=== PATIENT | female | born 1975 | race Hispanic/Latino ===

== ENCOUNTER 2018-09-22 11:37 | Emergency (ER) | payer SELFPAY ==
[2018-09-22 11:38] VITALS: BP 117/55; PULSE 61; RESP 17; TEMP 36.9; O2SAT 98; BMI 32.8
--- NOTE | 2018-09-22 11:51 | CT_ITS ---
STUDY: CT ABDOMEN AND PELVIS WITHOUT CONTRAST REASON FOR EXAM: Female, 43 years old. Right flank pain. History of kidney stones. RADIATION DOSAGE (If Supplied By Facility): CTDIvol = ( 7.76 ) mGy, DLP = ( 374.21 ) mGycm TECHNIQUE: Transaxial images were obtained from the dome of the diaphragm to the symphysis pubis without oral contrast, and without intravenous contrast. Sagittal and coronal images were reconstructed. Individualized dose optimization techniques were used for this CT. COMPARISON: None. FINDINGS: The visualized lung bases are unremarkable. There are small fat-containing hernias through the lateral posterior hemidiaphragms. The visualized portions of the heart are within normal limits. There is decreased attenuation of the liver consistent with steatosis. Portal vein diameter is approximately 10.5 mm. 11 mm rim calcified stone is noted near the neck of the gallbladder. There is no thickening of the gallbladder wall nor pericholecystic fluid to indicate cholecystitis. The common bile duct diameter reaches 7 mm. Normal spleen. Normal pancreas. Normal bilateral adrenal glands. Normal right kidney. Normal left kidney. Prominent left extrarenal pelvis and borderline fullness of the proximal left ureter. No nephrolithiasis or overt source of urinary tract obstruction. Normal visualized stomach. Normal small intestine. There are regional left colonic diverticula consistent with diverticulosis. The appendix is visualized on series 601 images 65-66 and appears normal. Normal abdominal aorta. Normal inferior vena cava. Normal retroperitoneum. Normal urinary bladder. The size of the anteverted midline uterus is upper normal. Normal visualized adnexa. There is a very small umbilical hernia containing fat. There are mild degenerative changes of the visualized lower thoracic and mid lumbar spine. 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 CT/Abdomen/Pelvis without Cont IMPRESSION: 1. [address] sign of acute cholecystitis or bile duct obstruction. 2. Prominent left extrarenal pelvis. No nephrolithiasis or demonstrated source of urinary tract obstruction, however. 3. Mild left colonic diverticulosis without acute diverticulitis. No sign of bowel obstruction. The appendix is normal. 4. The uterus is upper normal in size. The visualized adnexa are unremarkable. Electronically Signed: Kevyn Dominguez MD at 13:45 EST , Service support ,
--- NOTE | 2018-09-22 11:53 | ED.VISSUMM ---
- ER Visit Summary Date of Service: 09/22/18 Chief Complaint: [] Right flank pain frequent urination for about 2 weeks History of Present Illness: The patient is a 43 F [] speaks Bahraini very little Djiboutian history is provided by daughter who is translating for her. Apparently patient's been having a flank pain, that can be episodic, to the right side for about 2 weeks with frequent urination, no fever no cough bowel habits have been normal, the flank pain and frequent urination intensified over the last few days and she came in for evaluation. She is a prior history for kidney stones involving the right side that were treated with medications only, she has had a small procedure for control years ago she no longer has menstrual cycles, she had no vaginal bleeding or discharge she had no trauma to her body she is eating and drinking well and otherwise feels fine, she takes her hand and draws with her right flank down across the right iliac crest complaining of pelvic pressure when the pain strikes her, nothing makes it better or worse, Otherwise per history she has no other past history and is on no chronic meds Physical Examination: [] 117/55, afebrile General, no distress resting comfortably HEENT is generally unremarkable The neck is supple no adenopathy Cardiovascular, regular rate and rhythm Lungs, clear bilateral Abdomen, soft nontender, she takes her hand and draws across her right flank there is no rebound guarding organomegaly no skin changes no contusion or bruising Extremities, no clubbing cyanosis or edema Neurologic, awake alert answering questions appropriately moving all 4 extremities Test Results: [] Emergency Department Course and Treatment: [] In all the above screening labs IV fluids pain management CT Patient's lab studies are generally all unremarkable please see those reports, the CT abdomen shows nothing acute they do note an 11 mm gallstone in the right upper quadrant gallbladder region, there is no signs of acute cholecystitis intrahepatic duct dilatation or any acute gross abnormalities related to this gallstone she is resting in the bed comfortably discussed the details of the workup with her and the daughter as above, the patient has no questions, she is been very stable here, I did explain the concept of the gallstone contributing to least a component of the right sided pain it would not really explain the urinary symptoms, At this time she is referred to Dr. Richardson of surgery, she is referred to [facility] she will be given Maxatawny No. 7 tablets use apparently at bedtime and return for change in symptoms via the daughter as kindergarten instructional assistant the patient reported understanding had no further questions or concerns about follow-up Treatment Plan: [] Disposition: [] Home stable Impression: [] Intermittent right flank pain etiology unclear, [address] This note was generated with [employer] dictation software. It may contain incorrect words, spelling, and punctuation that were not noted in review of the chart prior to signing ED Disposition - Plan for ED Patient: Chief Complaint: Flank Pain Referrals: Care Physician,No Primary [Primary Care Provider] -
[2018-09-22 12:03] LABS: Absolute Neutrophil Count 3.5 X10^3/uL (2.0-7.7); Basophil# 0.01 X10^3/uL; Basophil% 0.2 % (0-1); Eosinophils% 1.7 % (0-5); Hematocrit 35.2 % (37-47); Hemoglobin 11.8 g/dl (12.0-15.0); Mean Corp Hgb Conc 33.5 g/gl (32-36); Mean Corpuscular Hgb 29.5 pg (27.0-32.0); Mean Platelet Vol. 10.7 fl (6.2-12.0); Monocyte# 0.33 X10^3/uL; Monocyte% 5.5 % (0-10); Neutrophil # 3.45 X10^3/uL (2.7-7.7); Neutrophil % 57.4 % (47-70); Platelet Count 232 K/mm3 (150-450); RBC Distribution Width CV 13.4 % (11.6-14.6); RBC Distribution Width SD 43.3 fl (35.1-43.9)
[2018-09-22 12:05] LABS: POSITIVE COUNT NO; POSITIVE DIFFERENTIAL NO; POSITIVE MORPHOLOGY NO
[2018-09-22] MEDS: morphine 8 MG/ML Syringe IV (12:14)
[2018-09-22] MEDS: 0.9% Normal Saline 1,000 ML 1000 ML IV (12:15)
[2018-09-22] MEDS: Ondansetron 4 MG/2 ML Vial IV (12:15)
[2018-09-22 12:18] LABS: AST(SGOT) 15 U/L (15-37); Alanine Aminotransfer ALT/SGPT 37 U/L (13-56); Albumin, Serum 3.4 g/dL (3.2-5.0); Alkaline Phosphatase 71 U/L (45-117); Anion Gap 6 (5-15); BUN 15 mg/dL (7-18); BUN/Creat Ratio 19.5 RATIO (10-20); Calcium,Total 7.8 mg/dL (8.5-10.1); Chloride 108 mmol/L (98-107); Creatinine, Serum 0.77 mg/dL (0.55-1.02); EST Glomerular Filtration Rate 87 mL/min (>60); Est Glom Filt Rate - Afr Amer 105 mL/min (>60); Estimated Creatinine Clearance 68.36 ml/min; Globulin 4.2 g/dL (2.2-4.2); Glucose 121 mg/dL (74-106); Lipase 112 U/L (73-393); Potassium 3.6 mmol/L (3.5-5.1); Protein, Total 7.6 g/dL (6.4-8.2); Sodium Level 138 mmol/L (136-145)
[2018-09-22 12:48] LABS: Bacteria 0 SEEN /hpf (None Seen); Color, Urine Yellow (Yellow); Glucose, Dipstick Normal (Normal); Ketone-Dipstick Negative (Negative); Leukocyte Esterase-Dipstick 25 /ul (Negative); Mucous, Urine 0 SEEN /hpf (<or=2+); Nitrite-Dipstick Negative (Negative); Occult Blood-Urine 25 /ul (Negative); Protein-Dipstick Negative (Negative); Red Blood Cells-Urine 0 SEEN /hpf (0-5); Urine Bilirubin Dipstick Negative (Negative); Urine Clarity Clear (Clear); Urine Urobilinogen Normal (Normal); Urine pH 6.5 (5.0 - 8.0)
[2018-09-22 12:55] LABS: Squamous Epithelial Cells - UA 0-5 SEEN /hpf (5-10); White Blood Cells 0-5 SEEN /hpf (0-5)
[2018-09-22] MEDS: Morphine 4 MG/ML Syringe IV (13:31)
[2018-09-22] MEDS: 0.9% Normal Saline 1,000 ML 999 ML IV (13:32)
--- NOTE | 2018-09-22 14:00 | ED.DEP ---
ED Disposition - Plan for ED Patient: Chief Complaint: Flank Pain Instructions: ED Flank Pain Uncertain Cause Prescriptions: Hydrocodone Bitart/Apap 5-325 [[place] 5MG-325MG] 1 tab PO QHS 2 Days #10 tab Referrals: Care Physician,No Primary [Primary Care Provider] - Tenzin Bean MD [STAFF PHYSICIAN] - Oniel Ac MD [STAFF PHYSICIAN] -
--- NOTE | 2018-09-22 14:04 | DCINST.ED_ITS ---
ED Disposition - Plan for ED Patient: Chief Complaint: Flank Pain Instructions: ED Flank Pain Uncertain Cause Prescriptions: Hydrocodone Bitart/Apap 5-325 [[place] 5MG-325MG] 1 tab PO QHS 2 Days #10 tab Referrals: Care Physician,No Primary [Primary Care Provider] - Tenzin Bean MD [STAFF PHYSICIAN] - Oniel Ac MD [STAFF PHYSICIAN] -
[2018-09-22 14:16] VITALS: BP 105/51; PULSE 54; RESP 16
== END 2018-09-22 14:21 | disposition home or self-care (01) ==
LOC: ED 12:21
PROVIDERS: Emergency Provider Emergency Medicine
DX: R10.9 Unspecified abdominal pain (principal); K80.20 Calculus of gallbladder without cholecystitis without obstruction; R35.0 Frequency of micturition; R30.0 Dysuria; Z87.442 Personal history of urinary calculi
CPT/HCPCS: 74176; 80048; 80076; 81001; 83690; 85025; 87086; 87088; 96361; 96374; 96375; 96376; 99283; J7030; J2405

== ENCOUNTER 2018-10-04 10:10 | Day surgery (SDC) | payer SELFPAY ==
[2018-09-29 13:56] VITALS: BMI 32.5
[2018-10-04] VITALS (7 sets, daily range): BP systolic 112–125; BP diastolic 60–73; PULSE 55–67; RESP 16–18; TEMP 36.2–36.8; O2SAT 96–100; BMI 30.7
--- NOTE | 2018-10-04 10:30 | GALL_PTH ---
PATIENT: MARILIA CALLAHAN LOC: [facility] U#:[id number] AGE/SX: 43/F ROOM: RE10/04/[address]: Dr. Tenzin Bean MD : [id number] BED: DIS: 10/04/2018 SPEC #: [id number] RECD: 10/05/18 08:42 STATUS: DEEJAY VANGIE #: [id number] SUMIT: 10/04/18 10:[address]: Tenzin Bean DEPT: SURGICAL PATHOLOGY RECD BY: Phiilp Oconnor ENTERED: 10/05/18 09:22 SP TYPE: RAMÓN LARA DR: No Primary Care Phys Tissues: Gallbladder, NOS Procedures: Surgery Specimen Level III HEADER OPERATION: Laparoscopic cholecystectomy with intraoperative cholangiogram PRE-OP DIAGNOSIS: Calculus of gallbladder without cholecystitis without obstruction, biliary colic TISSUE SUBMITTED: Gallbladder MICROSCOPIC DIAGNOSIS Gallbladder: Chronic cholecystitis, cholelithiasis and cholesterolosis. SJ:wendy 10/06/18 MICROSCOPIC DESCRIPTION Slides are reviewed. GROSS DESCRIPTION Received is one container labeled with the patient's name and designated gallbladder. The specimen consists of a gallbladder measuring 6.5 cm in length and up to 3 cm in diameter. The external surface is pink-higgins, smooth and glistening for the most part. Focally it is granular, hemorrhagic and contains cautery artifact. The gallbladder contains thick, green-yellow mucoid bile, sludge material and one round to ovoid greenish-brown stone measuring 1.2 cm in greatest dimension. The mucosa is bile-stained and without any mass lesions. The gallbladder wall measures up to 0.3 cm in thickness. The mucosa also shows several yellowish streaks consistent with cholesterolosis. Magento Developer sections from the gallbladder and the cystic duct are submitted in one cassette. / SJ:wendy 10/05/18 TC:3 CPT: 81272
[2018-10-04 10:37] LABS: Internal QC Validated? YES +Cl - CLEAR BKGD; Pregnancy, Urine Negative Negative
--- NOTE | 2018-10-04 10:47 | EKG12_ITS ---
Test Reason : PRE OP Blood Pressure : / mmHG Vent. Rate : 058 BPM Atrial Rate : 058 BPM P-R Int : 146 ms QRS Dur : 086 ms QT Int : 444 ms P-R-T Axes : 040 029 031 degrees QTc Int : 435 ms Sinus bradycardia Confirmed by JEREMÍAS NAM, ALLIE ([id number]), design editor MARIA A WEBSTER ([id number]) on 10/06/2018 3:24:17 PM Referred By: Tenzin Bean Confirmed By:ALLIE VERONICA MD
--- NOTE | 2018-10-04 11:15 | RAD_ITS ---
STUDY: INTRAOPERATIVE CHOLANGIOGRAM. REASON FOR EXAM: Female, 43 years old. A laparoscopic cholecystectomy. FLUOROSCOPY TIME (if supplied): (19.9 seconds) minutes/seconds. Single image. TECHNIQUE: An intraoperative quadrant was performed by the surgeon. Imaging was provided. COMPARISON: None. FINDINGS: The visualized intrahepatic bile ducts are unremarkable. The common bile duct is unremarkable as well. There is free flow of contrast into the duodenum. RAD/Cholangiogram/ O R,Initial IMPRESSION: Unremarkable intraoperative cholangiogram. Electronically Signed: Jamie White MD at 13:28 EST Tel [phone], Service support ,
[2018-10-04] MEDS: Bupiv/Epi 0.5% Mpf 30 ML Vial INTRAARTIC (12:20)
--- NOTE | 2018-10-04 12:34 | PCM.OPRPT ---
Problem List (1) Cholelithiasis Status: Acute Qualifiers: Cholelithiasis location: gallbladder Cholecystitis presence: without cholecystitis Biliary obstruction: without biliary obstruction Qualified Code(s): K80.20 - Calculus of gallbladder without cholecystitis without obstruction Report of Operation Date of Procedure: 10/04/18 Pre-Operative Diagnosis: Cholelithiasis and biliary colic Post-Operative Diagnosis: Same Surgery/Procedure Performed:: Laparoscopic cholecystectomy with cholangiogram Specimen's removed: Gallbladder Description of Procedure: After obtaining informed consent patient was brought back to the operating room. General anesthesia was induced. The abdomen was prepped and draped in usual sterile fashion. A small midline incision was made superior to the umbilicus and deepened to the level of fascia. The fascia was elevated and incised. Next the peritoneum was elevated and incised in the same fashion. Finger sweep was performed and the Read trocar was placed into the abdomen. The balloon was inflated. The abdomen was inflated to 15 mmHg. Next a camera was introduced into the abdomen and the abdomen was inspected. Next under direct visualization three 5-mm ports were placed one subxiphoid and 2 subcostal. Next the gallbladder was elevated and retracted toward the right shoulder. The peritoneum was stripped from the gallbladder. The infundibulum was located and retracted laterally. Next the triangle of Calot was dissected and the cystic duct and cystic artery were identified. Cholangiograms were performed. The Chance catheter was used to clamp across the infundibulum and the needle was inserted into the gallbladder. There was a leak using the Chance catheter and so the Chance clamp was removed. Next a small incision was made in the right upper quadrant and a Ranfac catheter was placed into the abdomen. The cystic duct was clipped proximally and a small yulissa was made in the cystic duct and the Ranfac catheter was placed into the cystic duct. Another clip was applied below the entrance to the cystic duct and cholangiograms were obtained. Under fluoroscopy contrast was instilled into the gallbladder and the common duct, cystic duct as well as proximal hepatic ducts were identified. There was good filling of the duodenum. There were no filling defects noted in the common bile duct. The Ranfac catheter was removed and the gallbladder was grasped once more. Three hemolock clips were placed across the cystic duct. The cystic duct was then divided leaving 2 clips on the stump. The cystic artery was clipped and divided in the same fashion. The hook cautery was then used to take the gallbladder off of the gallbladder bed. Hemostasis was obtained. Gallbladder fossa was irrigated and no active bleeding or bile leakage was noted. Next the camera switched to a 5 mm camera and introduced in the subxiphoid port. An Endopouch bag was placed through the umbilical port and the gallbladder was placed into it. The gallbladder was then removed through the umbilical incision. The camera was then reinserted through the umbilical port. The gallbladder fossa was inspected once more and noted to be hemostatic with no leaking bile. The abdomen was suctioned dry the 5 mm ports were removed under direct visualization. The umbilical port was then removed and the air was removed from the abdomen. Next using an 0 Vicryl suture the umbilical fascia was closed in a [id number] fashion. The umbilical port site was irrigated local anesthetic was administered to all the incisions. All the incisions were closed subcuticular 4-0 Monocryl sutures followed by Steri-Strips and dressings. The patient was awoken and taken to PACU in stable condition. - Admit VTE Documentation VTE Mechan Device Prophylaxis: SCD's
--- NOTE | 2018-10-04 12:41 | DCINST_ITS ---
Discharge Diet: Light diet - advance as tolerated Discharge Activity: Return to Normal Activity, May Not Drive - for 2-3 days or while taking narcotic pain medicataions., - - Do not drive, work heavy equipment or sign legal documents for 24 hours. May shower in (days): 1 - with the bandage in place. Additional Activity Instructions:: Pain medication may cause nausea. You should typically eat light foods as you take your pain medications. Pain medication may also cause constipation. If this is a problem for you, please discuss with your doctor. Call your doctor if your incision/area has: Continuous Slow Oozing, Sudden Increased Bleeding, Increased Pain/ Swelling, Increased Redness, Foul Smelling Discharge, Fever of 101 or Higher Call your doctor if you observe: Fever of 101 or Higher Suture Line Care: Avoid Pulling/Pushing, Avoid Pinching/Bending Additional Dressing/Incision Instructions:: Leave operative bandaids on for 2 days. When you remove dressing, leave Steri-Strips on until your follow-up appointment, or until the Steri-Strips fall off on their own. Allergies/Adverse Reactions: Allergies No Known Allergies Allergy (Verified 09/29/18 14:02) Medications to take at Discharge Hydrocodone/Acetaminophen [Hydrocodone-Acetamin 5-325 mg] 1 tab PO QHS PRN 10/03/18 Hydrocodone/Acetaminophen [[place] 5-325 Tablet] 1 - 2 tab PO Q6H PRN PRN 7 Days #40 tablet 10/04/18 The following prescriptions were given: Hydrocodone/Acetaminophen [[place] 5-325 Tablet] 1 - 2 tab PO Q6H PRN PRN 7 Days #40 tablet PRN Reason: Pain Orders to be completed after discharge: 12 Lead EKG [[facility]] Time Frame: 10/04/18, Facility: [facility], Location: Invasive Physician Primary Care Physician: Care Physician,No Primary [Primary Care Provider] - Test Results: Test results from this visit will be discussed in further detail at your follow- up appointment, if applicable. Please Follow Up With: Tenzin Bean MD When: Please call to schedule 2 week follow up appointment. [phone]
[2018-10-04] MEDS: HYDROcodone Bitartrate/Apap 5/325 Tablet PO (14:42)
== END 2018-10-04 16:01 | disposition home or self-care (01) ==
LOC: SDC 10:13 → AC 10:14
PROVIDERS: Anesthesiology; Referring Provider Surgery; Visit Provider Surgery
PROC: (CPT 47610; principal; 2018-10-04 10:10)
DX: K80.10 Calculus of gallbladder with chronic cholecystitis without obstruction (principal); Z87.891 Personal history of nicotine dependence
CPT/HCPCS: 00790; 47563; 74300; 76000; 81025; 88304; 93005; J7120; J2405

== ENCOUNTER 2018-11-04 16:36 | Emergency (ER) | payer SELFPAY ==
[2018-11-04 16:36] VITALS: BMI 30.7
[2018-11-04 16:39] VITALS: BP 119/64; PULSE 67; RESP 19; TEMP 37.1; O2SAT 97; BMI 28.3
--- NOTE | 2018-11-04 16:49 | CT_ITS ---
STUDY: CT ABDOMEN AND PELVIS WITH CONTRAST REASON FOR EXAM: Female, 43 years old. Recent cholecystectomy. Lower abdominal pain. RADIATION DOSAGE (If Supplied By Facility): CTDIvol = ( 14.89 ) mGy, DLP = ( 1304.49 ) mGycm TECHNIQUE: Transaxial images were obtained from the dome of the diaphragm to the symphysis pubis without oral contrast. 100mL ml of Isovue 300 contrast was administered. Sagittal and coronal images were reconstructed. Individualized dose optimization techniques were used for this CT. COMPARISON: 09/22/2018. FINDINGS: The visualized lung bases are unremarkable. The visualized portions of the heart are within normal limits. Normal liver. There is non-visualization of the gallbladder, which may be secondary to either contraction or a prior cholecystectomy. Normal spleen. Normal pancreas. Normal bilateral adrenal glands. Normal right kidney. Abnormal left kidney with increasing hydronephrosis and distention of the renal pelvis to the level of the UPJ. Findings could represent an acquired UPJ obstruction/stricture. No definite stone is seen. Evaluation of the GI tract is limited by absence of oral contrast. Cannot exclude stomach wall thickening. No dilated loops of bowel or evidence for obstruction. Cannot exclude segmental thickening of the hills of the small or large bowel. Cannot exclude enteritis or colitis. Moderate diffuse fecal retention. Appendix within normal limits. Normal abdominal aorta. Normal inferior vena cava. Normal retroperitoneum. Distended urinary bladder. Normal visualized uterus. Normal abdominal wall. Normal osseous structures. CT/Abdomen/Pelvis W IV Cont ONLY IMPRESSION: Increasing left hydronephrosis and distention of the left renal pelvis without a definite stone. Findings could represent acquired UPJ obstruction. No other acute abnormalities. Electronically Signed: Nacho Price MD at 18:39 EST , Service support ,
--- NOTE | 2018-11-04 16:56 | ED.VISSUMM ---
- ER Visit Summary Date of Service: 11/04/18 Chief Complaint: Abdominal pain History of Present Illness: The patient is a 43 F who had a lap ben on October [address] Bean. Patient continues to have right upper quadrant pain around to her right flank and right shoulder. She has nausea and chills. She was seen in the office by Dr. Bean on October 19. She was told the pain may persist for another couple of weeks, but if it persisted longer she should be reevaluated. Physical Examination: Vital signs are unremarkable. Patient is afebrile. Head neck examination unremarkable. Heart is regular rate and rhythm. Lungs sounds are clear. Abdomen is soft with tenderness in the right upper quadrant. No guarding or rebound. Hypoactive bowel sounds are noted. Healing surgical incision sites are noted with no sign of infection. Test Results: CBC and chemistry studies unremarkable. LFTs and lipase normal. Urinalysis does show sign of infection with 3+ bacteria and 5-[address] scan with IV contrast shows increasing left-sided hydronephrosis and distention of the left renal pelvis without a definite stone. There is a questionable acquired UPJ obstruction. Emergency Department Course and Treatment: Patient was given morphine, Zofran, and IV fluids. Test results were discussed with her through marketing account executive at bedside. I did express the findings on the left kidney on the CT scan, patient has no pain to this area. She certainly does have signed a UTI and may have pyelonephritis affecting the right kidney, thus causing right flank pain. At this time the surgical site is clean with no sign of infection. I spoke with Dr. Ac regarding the hydronephrosis and patient can follow-up as an outpatient. She is given a dose of Rocephin here and a urine culture is sent. Patient be discharged with Bactrim along with [place] for pain. Treatment Plan: [] Disposition: Discharge Impression: 1. Pyelonephritis 2. Right flank pain 3. Left-sided hydronephrosis This note was generated with [employer] dictation software. It may contain incorrect words, spelling, and punctuation that were not noted in review of the chart prior to signing ED Disposition - Plan for ED Patient: Chief Complaint: Abd Pain Referrals: Care Physician,No Primary [Primary Care Provider] -
[2018-11-04 17:01] VITALS: BP 119/64; PULSE 67; RESP 14; TEMP 36.9; O2SAT 98
[2018-11-04] MEDS: Morphine 4 MG/ML Syringe IV ×2 (17:15→18:53)
[2018-11-04] MEDS: 0.9% Normal Saline 1,000 ML 150 ML IV (17:15)
[2018-11-04] MEDS: Ondansetron 4 MG/2 ML Vial IV ×2 (17:15→18:53)
[2018-11-04 17:18] LABS: Absolute Lymphocyte Count 2.02 X10^3/ul (0.83-4.51); Absolute Neutrophil Count 3.7 X10^3/uL (2.0-7.7); Basophil# 0.01 X10^3/uL; Basophil% 0.2 % (0-1); Eosinophil# 0.18 X10^3/uL; Eosinophils% 2.9 % (0-5); Hematocrit 36.1 % (37-47); Hemoglobin 12.2 g/dl (12.0-15.0); Lymphocyte # 2.02 X10^3/ul (4.0); Lymphocyte % 32.1 % (19-41); Mean Corp Hgb Conc 33.8 g/gl (32-36); Mean Corpuscular Hgb 29.3 pg (27.0-32.0); Mean Corpuscular Volume 86.8 fL (81-99); Mean Platelet Vol. 10.6 fl (6.2-12.0); Monocyte# 0.37 X10^3/uL; Monocyte% 5.9 % (0-10); Neutrophil # 3.71 X10^3/uL (2.7-7.7); Neutrophil % 58.9 % (47-70); Platelet Count 222 K/mm3 (150-450); RBC Distribution Width CV 13.1 % (11.6-14.6); RBC Distribution Width SD 41.9 fl (35.1-43.9); Red Blood Count 4.16 M/mm3 (4.2-5.4); White Blood Count 6.3 K/mm3 (4.4-11.0)
[2018-11-04 17:20] LABS: POSITIVE COUNT NO; POSITIVE DIFFERENTIAL NO; POSITIVE MORPHOLOGY NO
[2018-11-04 17:32] LABS: AST(SGOT) 17 U/L (15-37); Alanine Aminotransfer ALT/SGPT 35 U/L (13-56); Albumin, Serum 3.5 g/dL (3.2-5.0); Alkaline Phosphatase 92 U/L (45-117); Anion Gap 9 (5-15); BUN 12 mg/dL (7-18); BUN/Creat Ratio 21.2 RATIO (10-20); Bilirubin, Direct 0.08 mg/dL (0.00-0.30); Calcium,Total 8.4 mg/dL (8.5-10.1); Chloride 106 mmol/L (98-107); Creatinine, Serum 0.57 mg/dL (0.55-1.02); EST Glomerular Filtration Rate 124 mL/min (>60); Est Glom Filt Rate - Afr Amer 150 mL/min (>60); Estimated Creatinine Clearance 106.36 ml/min; Globulin 4.2 g/dL (2.2-4.2); Glucose 108 mg/dL (74-106); Lipase 111 U/L (73-393); Potassium 3.5 mmol/L (3.5-5.1); Protein, Total 7.7 g/dL (6.4-8.2); Sodium Level 142 mmol/L (136-145)
[2018-11-04 18:15] VITALS: BP 126/79; PULSE 65; RESP 15; TEMP 36.6; O2SAT 98
[2018-11-04 18:28] LABS: Mucous, Urine 0 SEEN /hpf (<or=2+); Red Blood Cells-Urine 0 SEEN /hpf (0-5)
[2018-11-04 18:30] LABS: Color, Urine Yellow (Yellow); Glucose, Dipstick Normal (Normal); Ketone-Dipstick Negative (Negative); Leukocyte Esterase-Dipstick 500 /ul (Negative); Nitrite-Dipstick Negative (Negative); Occult Blood-Urine 50 /ul (Negative); Protein-Dipstick Negative (Negative); Specific Gravity, Urine 1.005 (1.002-1.030); Urine Bilirubin Dipstick Negative (Negative); Urine Clarity Cloudy (Clear); Urine Urobilinogen Normal (Normal)
[2018-11-04 18:46] LABS: Bacteria 3+ /hpf (None Seen); Squamous Epithelial Cells - UA 10-25 SEEN /hpf (5-10); White Blood Cells 25-50 SEEN /hpf (0-5)
[2018-11-04 19:09] VITALS: BP 121/76; PULSE 68; RESP 15; TEMP 36.9; O2SAT 97
[2018-11-04] MEDS: Ceftriaxone 1 GM/50 ML BAG IV (20:01)
[2018-11-04 20:04] VITALS: BP 117/59; PULSE 61; PULSE 62; RESP 16; TEMP 36.9; O2SAT 97
--- NOTE | 2018-11-04 20:26 | ED.DEP ---
ED Disposition - Plan for ED Patient: Disposition: Home or Assisted Living Chief Complaint: Abd Pain Instructions: ED Kidney Infec Female Prescriptions: Hydrocodone Bitart/Apap 5-325 [[place] 5MG-325MG] 1 tablet PO Q6H PRN PRN 3 Days #14 tablet PRN Reason: Pain Smz/Tmp Ds [Bactrim Ds] 1 tablet PO BID #20 tablet Referrals: Oniel Ac MD [STAFF PHYSICIAN] - 1-2 Weeks
[2018-11-04 20:57] VITALS: BP 116/71; PULSE 60; RESP 15; O2SAT 98
--- NOTE | 2018-11-04 20:58 | ED.RN ---
PT GIVEN WRITTEN AND VERBAL DISCHARGE INSTRUCTIONS AND HOME GOING PRESCRIPTIONS. FRIEND INTERPRETS D/C INSTRUCTIONS. PT AND FAMILY VERBALIZES UNDERSTANDING. PT IV D/C COVERED WITH 2X2 GAUZE AND PAPER TAPE. PT DRESSES SELF AND AMBULATES OUT OF DEPT WITH FAMILY. PT EDUCATED TO RETURN TO ED WITH ANY NEW OR WORSENED SX.
--- NOTE | 2018-11-04 21:27 | ED.DEP ---
ED Disposition - Plan for ED Patient: Disposition: Home or Assisted Living Chief Complaint: Abd Pain Instructions: ED Kidney Infec Female Prescriptions: Hydrocodone Bitart/Apap 5-325 [[place] 5MG-325MG] 1 tablet PO Q6H PRN PRN 3 Days #14 tablet PRN Reason: Pain Ondansetron [Zofran Odt] 4 mg PO Q8H PRN PRN #10 tab PRN Reason: Nausea Smz/Tmp Ds [Bactrim Ds] 1 tablet PO BID #20 tablet Referrals: Oniel Ac MD [STAFF PHYSICIAN] - 1-2 Weeks
[2018-11-04] MEDS: Ondansetron ODT 4 MG Tablet PO (21:34)
--- NOTE | 2018-11-04 21:35 | ED.RN ---
FAMILY CALLED REQUESTING NAUSEA MEDICATION. DR GREENBERG AWARE. THP OF ZOFRAN GIVEN WITH RX TO FAMILY MEDICATION.
== END 2018-11-04 21:01 | disposition home or self-care (01) ==
PROVIDERS: Emergency Provider Emergency Medicine
DX: N13.6 Pyonephrosis (principal); R10.11 Right upper quadrant pain; Z87.891 Personal history of nicotine dependence; Z90.49 Acquired absence of other specified parts of digestive tract
CPT/HCPCS: 74177; 80048; 80076; 81001; 83690; 85025; 87086; 87088; 96361; 96365; 96375; 96376; 99283; J7030; Q9967; A4216; J2405

== ENCOUNTER 2019-05-18 08:13 | Day surgery (SDC) | payer SELFPAY ==
--- NOTE | 2019-05-08 16:56 | HP.PCM_ITS ---
History and Physical Date of Admission: 05/08/19 Pre-Op History and Physical ? HPI: The patient is a 44 year old female presenting for pre-operative visit. She is scheduled for?hysteroscopy D&C, possible polyp resection, Mirena IUD insertion, for?AUB, thickened endometrium and polyp on EMB on?05/18/19. ??Procedure discussed along with risks, benefits and complications. ?Other alternatives discussed for management. Consent form signed??Yes.? PAST?MEDICAL?HISTORY PAST MEDICAL HISTORY Diagnosis Date ? Kidney problem 2003 ? unsure of the problem ? ? PAST?SURGICAL?HISTORY PAST SURGICAL HISTORY Procedure Laterality Date ? REMOVAL GALLBLADDER ? 10/2018 ? TUBAL LIGATION ? 2013 ? TUMOR REMOVAL (SPECIFY LOCATION) HX ? 2006 ? benign- neck ? ? CURRENT?MEDICATIONS Current Outpatient Medications Medication Sig Dispense Refill ? omeprazole (PRILOSEC) 20 mg capsule Take 20 mg by mouth once daily. ? 0 ? medroxyPROGESTERone (PROVERA) 10 mg tablet Take 1 tablet by mouth once daily. 10 tablet 0 ? ibuprofen (ADVIL) 200 mg tablet Take 200 mg by mouth every 6 hours as needed. ? ? ? Multivitamins chew Take by mouth. ? ? ? No current facility-administered medications for this visit.? ? ALLERGIES:?Patient has no known allergies. ? PERSONAL HISTORY:? SOCIAL?HISTORY Social History ??Socioeconomic History ?Marital status: Single ?Spouse name: Not on file ?Number of children: Not on file ?Years of education: Not on file ?Highest education level: Not on file ??Social Needs ?Financial resource strain: Not on file ?Food insecurity - worry: Not on file ?Food insecurity - inability: Not on file ?Transportation needs - medical: Not on file ?Transportation needs - non-medical: Not on file ??Occupational History ?Not on file ??Tobacco Use ?Smoking status: Never Smoker ?Smokeless tobacco: Never Used ??Substance and Sexual Activity ?Alcohol use: No ?Drug use: No ?Sexual activity: Not on file ??Other Topics ?Concerns: ?Not on file ??Social History Narrative ?Not on file ? FAMILY HISTORY:? FAMILY?HISTORY w FAMILY HISTORY Problem Relation Age of Onset ? Diabetes Father ? ? REVIEW OF SYMPTOMS: GENERAL: denies fevers or chills ENDOCRINOLOGY: has not been on steroids Cardiology : denies palpitations or chest pain Respiratory: denies SOB or cough Hematology: denies history of prolonged bleeding or easy bruising or VTE Allergy: Denies history of personal or family history of allergy to anesthesia ? ? PHYSICAL EXAMINATION: ? VITALS:?There were no vitals taken for this visit. ? GENERAL:??The patient is well nourished, well hydrated in no acute distress. ?, The patient is oriented to time, place, and person. NECK:?Supple. No lynphadenopathy, normal thyroid, no thyromegaly. LUNGS:?Clear to auscultation bilaterally. no wheezes, rhonchi or rales HEART:?Regular rate and rhythm, Normal heart sounds and No murmurs or gallops ? ? ? IMPRESSION:?thickened endometrium, AUB, polyp on EMB ? PLAN:???The risks/benefits/alternatives and personal involved for the planned?h ysteroscopy dilation and curettage, possible polyp resection and Mirena IUD insertion?were reviewed with the patient. Her questions were answered to her satisfaction and she desires to proceed. ?Consent was signed. ?I reviewed with her postop instructions and expectations. ? ? I have reviewed and updated past medical and surgical history, medications and allergies? this history and physical was entered in my office on 05/08/2019 Teagan Peña M.D.
[2019-05-18] VITALS (7 sets, daily range): BP systolic 109–131; BP diastolic 61–75; PULSE 62–82; RESP 16–18; TEMP 36.2–36.7; O2SAT 96–100
--- NOTE | 2019-05-18 | EMB_PTH ---
PATIENT: MARILIA CALLAHAN LOC: [facility] – [place], [place] U#:[id number] AGE/SX: 44/F ROOM: RE05/18/[address]: Dr. Teagan Peña MD : 1975 BED: DIS: 05/18/2019 SPEC #: [id number] RECD: 05/18/19 14:31 STATUS: DEEJAY VANGIE #: [id number] SUMIT: 05/18/19 00:[address]: Teagan Peña DEPT: SURGICAL PATHOLOGY RECD BY: Christopher Campbell ENTERED: 05/18/19 14:32 SP TYPE: ENDOM BX/C MARCO DR: No Primary Care Phys Tissues: Endometrium, NOS Procedures: Surgery Specimen Level IV HEADER OPERATION: Hysteroscopy, dilation and curettage, Mirena insertion PRE-OP DIAGNOSIS: Abnormal uterine bleeding; thickened endometrial and polyp TISSUE SUBMITTED: Endometrial curettings MICROSCOPIC DIAGNOSIS Endometrium, curettings: Secretory endometrium. AM:wendy 05/19/19 MICROSCOPIC DESCRIPTION Slides are reviewed. GROSS DESCRIPTION Received in fixative is one container labeled with the patient's name and designated endometrial curettings. The specimen consists of multiple irregular fragments of higgins-pink soft tissue that in aggregate measure 3 x 2.5 x 0.3 cm. The entire specimen is submitted in one cassette. / SJ:rg 05/18/19 TC:5 CPT: 55065
[2019-05-18 08:30] LABS: Internal QC Validated? YES +Cl - CLEAR BKGD; Pregnancy, Urine Negative Negative
[2019-05-18] MEDS: Acetaminophen 500 MG Tablet 1000 MG PO (08:51)
[2019-05-18] MEDS: Ketorolac 30 MG/ML Syringe IV (08:52)
[2019-05-18 08:59] LABS: Hematocrit 32.9 % (37-47); Hemoglobin 11.1 g/dL (12.0-15.0); Mean Corp Hgb Conc 33.7 g/dL (32-36); Mean Corpuscular Hgb 28.7 pg (27.0-32.0); Mean Platelet Vol. 11.3 fl (6.2-12.0); Platelet Count 227 K/mm3 (150-450); RBC Distribution Width CV 13.2 % (11.6-14.6); RBC Distribution Width SD 40.7 fl (35.1-43.9); Red Blood Count 3.87 M/mm3 (4.2-5.4); White Blood Count 6.7 K/mm3 (4.4-11.0)
--- NOTE | 2019-05-18 09:54 | DCINST_ITS ---
Discharge Diet: No Restrictions Discharge Activity: Return to Normal Activity, May Shower, May Take a Tub Bath - in 2 weeks. Return to work on:: 05/22/19 May resume sexual activity in: 2 weeks Call your doctor if your incision/area has: Sudden Increased Bleeding, Foul Smelling Discharge Call your doctor if you observe: Fever of 101 or Higher, Inability to have a bowel movement, Using more than one pad per hour, Uncontrolled pain Additional Instructions: YOu have a Mirena in. You can expect some spotting for up to 3 months. Allergies/Adverse Reactions: Allergies No Known Allergies Allergy (Verified 05/17/19 08:41) Medications to take at Discharge Ibuprofen 600 mg PO PRN PRN #0 05/18/19 Primary Care Physician: Care Physician,No Primary [Primary Care Provider] - Test Results: Test results from this visit will be discussed in further detail at your follow- up appointment, if applicable. Please Follow Up With: Teagan Peña MD - [phone] When: 6 weeks or as needed
--- NOTE | 2019-05-18 10:14 | PCM.OPRPT ---
Report of Operation Date of Procedure: 05/18/19 Pre-Operative Diagnosis: menorrhagia Post-Operative Diagnosis: same Surgery/Procedure Performed:: Hysteroscopy dilation and curettage and Mirena IUD insertion Description of Surgical Findings:: Normal-appearing cervix and vagina. Uterus sounded 9 cm. Both tubal ostia were identified. No focal abnormalities in the endometrial cavity. Lush thickened endometrium. speed runner: None Type of Anesthesia:: MAC/Supplemental/Local Anesthesiologist: Viji Gonzalez Special Medications: None Specimen's removed: Endometrial curettings Drains: None Estimated Blood Loss (mL): 20 Description of Procedure: The patient was taken to the OR where she was prepped and draped in dorsal lithotomy position. The weighted speculum was placed in the vagina and the anterior lip of the cervix was grasped with a single-tooth tenaculum. A paracervical block was administered with 1% lidocaine with 1-100,000 epinephrine solution. The cervix was dilated serially with Hegar dilators. The 5mm hysteroscope was placed into the uterine cavity and the above findings were noted. Bilateral tubal ostia were identified. The hysteroscope was removed. A gentle sharp curettage was done of the uterine cavity. A large amount of atrial tissue was removed. The uterus sounded to 9 cm. The Mirena intrauterine system was readied and inserted into the uterus in the usual fashion and deployed without difficulty. The strings were cut to 2 cm. The instruments were removed from the vagina. The specimen was handed off and sent to pathology. All sponge and needle counts were correct. Vaginal sweep was performed by me. The patient was awakened and taken to the recovery room in stable condition. Hysteroscopic ins: 250cc normal saline Hysteroscopic outs:150cc Findings: Endometrial cavity: No polyps or fibroids noted. Very less thickened endometrium. Cervix: Normal Vagina: Normal Grafts/Implants Used: Mirena IUD - Complications None - Admit VTE Documentation VTE Present on Admission: No VTE Mechan Device Prophylaxis: SCD's VTE Pharm Prophylaxis ordered?: No Reason prophylaxis not ordered:: Treatment Not Indicated
== END 2019-05-18 11:53 | disposition home or self-care (01) ==
LOC: SDC 08:15 → AC 08:16
PROVIDERS: Referring Provider Obstetrics & Gynecology; Visit Provider Obstetrics & Gynecology
PROC: 0UB98ZZ Excision of Uterus, Via Natural or Artificial Opening Endoscopic (ICD-10-PCS; CPT 58558; principal; 2019-05-18 09:15)
DX: N92.0 Excessive and frequent menstruation with regular cycle (principal); R93.89 Abnormal findings on diagnostic imaging of other specified body structures; E11.9 Type 2 diabetes mellitus without complications
CPT/HCPCS: 58300; 58558; 36415; 81025; 85027; 88305; J7120; J2405

== ENCOUNTER 2019-12-20 17:21 | Emergency (ER) | payer SELFPAY ==
[2019-12-20 17:22] VITALS: BP 144/72; PULSE 89; RESP 18; TEMP 37.8; O2SAT 95; BMI 31.8
--- NOTE | 2019-12-20 17:50 | ED.RN ---
PT REPORTS SX ONSET ON WEDNESDAY. INFORMATION GATHERED VIA IPAD CUTTING AND CREASING PRESS OPERATOR.
--- NOTE | 2019-12-20 18:40 | ED.VISSUMM ---
- ER Visit Summary Date of Service: 12/20/19 Chief Complaint: Fever and cough History of Present Illness: The patient is a 44 F no seen in past medical history other than cholecystectomy and . Since Wednesday had a fever and cough. Nonproductive. No vomiting or diarrhea. 2 small children with similar symptoms. Physical Examination: Well appearing awake female vital signs stable temperature 100.1. Pulse ox 95% room air no signs of hypoxia. H EENT exam unremarkable. TMs normal. Posterior pharynx normal. Well-hydrated. No exudate. No trouble swallowing or breathing no drooling. No stridor. Neck nontender no meningismus no lymphadenopathy. Lungs clear to auscultation bilaterally. Dry cough. Heart regular rhythm rate about 90 no murmur. Abdomen soft nontender normal bowel sounds no peritoneal signs. Moving all 4 extremities. Nontender. No swelling. No edema. Back nontender. Skin normal. Neurologic exam normal. Test Results: None Emergency Department Course and Treatment: Exam consistent with a viral syndrome. Possible influenza. Treatment Plan: Alternate Tylenol Motrin. Plenty of fluids and rest. Follow-up if not improving. Return if worse. Disposition: Discharge Impression: Acute viral syndrome This note was generated with [employer] dictation software. It may contain incorrect words, spelling, and punctuation that were not noted in review of the chart prior to signing ED Disposition - Plan for ED Patient: Referrals: Care Physician,No Primary [Primary Care Provider] -
--- NOTE | 2019-12-20 18:42 | ED.DEP ---
ED Disposition - Plan for ED Patient: Disposition: Home or Assisted Living Instructions: INFLUENZA (Adult) Referrals: Nicolas Borrego MD [STAFF PHYSICIAN] - 3-5 Days if not improving Additional Instructions: Fluids and rest. Alternate Tylenol Motrin for fever. Return if feeling worse otherwise follow-up as needed.
[2019-12-20] MEDS: Acetaminophen 500 MG Tablet 1000 MG PO (18:52)
== END 2019-12-20 19:08 | disposition home or self-care (01) ==
LOC: ED 18:57
PROVIDERS: Emergency Provider Emergency Medicine
DX: J11.1 Influenza due to unidentified influenza virus with other respiratory manifestations (principal); Z90.49 Acquired absence of other specified parts of digestive tract
CPT/HCPCS: 99283

== ENCOUNTER 2019-12-25 10:40 | Emergency (ER) | payer SELFPAY ==
[2019-12-25 10:41] VITALS: BP 110/50; PULSE 65; RESP 16; TEMP 37.1; O2SAT 96; BMI 28.5
--- NOTE | 2019-12-25 11:04 | ED.VIS.GEN ---
History of Present Illness Chief Complaint: Cold Sx Informant: Patient, Family Narrative: Patient presents for evaluation of cough. She was seen here last week diagnosed with influenza-like illness. She notes continued cough body aches. She notes runny nose sore throat and headache. Fever seems to have gotten better. No vomiting or diarrhea. Past Medical History - Allergies and Home Meds Allergies/Adverse Reactions: Allergies No Known Allergies Allergy (Verified 12/25/19 10:41) Primary Care Physician: Calli Astorga MD [STAFF PHYSICIAN] - As Needed (for primary care) Smoking Status: Never smoker Review of Systems General: Reports: Chills, Fever, Malaise. Denies: Sweats Eyes: Denies: Visual changes - bilaterally, Diplopia ENT: Reports: Rhinorrhea, Sore throat Cardiovascular: Denies: Chest pain, Palpitations Respiratory: Reports: Cough. Denies: Dyspnea, Dyspnea on exertion Gastrointestinal: Denies: Abdominal pain, Nausea, Vomiting, Diarrhea, Melena, Hematochezia Genitourinary: Denies: Dysuria, Hematuria, Frequency Musculoskeletal: Reports: Myalgias. Denies: Back pain, Extremity Pain Skin: Denies: Rash, Wounds Neurological: Reports: Headache. Denies: Weakness, Numbness Physical Exam Vital Signs/Narrative: Vital Signs Temp Pulse Resp BP Pulse Ox 12/25/19 10:41 98.8 F 65 16 110/50 L 96 Inital Vital Signs reviewed: Yes General: Well nourished, Well developed, No Acute Distress Head: Normocephalic, Atraumatic Eyes: Perrl, EOMI ENT: Moist mucous membranes, Nasal congestion Neck: Supple, Nontender Cardiovascular: Regular rate, Regular rhythm, No murmurs Respiratory: No distress, CTA bilaterally, Chest nontender Abdomen: Soft, Nontender, Nondistended, Normal bowel sounds Back: Nontender, Normal Inspection Extremities: Nontender, No edema Skin: Normal color, No rash Neurological: Alert, Oriented x3, Cranial nerves II-XII grossly intact, Normal Strength, Normal Sensation Psychological: Normal affect, Normal Mood Diagnostic/Tx/Re-eval - Medical Decision Making Again this definitely seems like a viral illness. There are 2 other children in the room that have similar illness. 1 of the children was screened for influenza and tested positive for influenza A. There is also most likely influenza. Explained to her that the cough can last for several weeks. Treatment is rest hydration fever control. Return if worsening or concerns. ED Disposition - Plan for ED Patient: Disposition: Home or Assisted Living Diagnosis: Influenza Instructions: INFLUENZA (Adult) Referrals: Calli Astorga MD [STAFF PHYSICIAN] - As Needed (for primary care) Print Language: Nauruan
[2019-12-25 11:40] VITALS: O2SAT 100
== END 2019-12-25 12:34 | disposition home or self-care (01) ==
PROVIDERS: Emergency Provider Emergency Medicine
DX: J11.1 Influenza due to unidentified influenza virus with other respiratory manifestations (principal)
CPT/HCPCS: 99283

== ENCOUNTER 2021-09-17 12:52 | Emergency (ER) | payer SELFPAY ==
[2021-09-17 12:53] VITALS: BP 127/62; PULSE 79; RESP 18; TEMP 36.1; O2SAT 99; BMI 23.4
--- NOTE | 2021-09-17 14:47 | CT_ITS ---
STUDY: CTA CHEST REASON FOR EXAM: Female, 46 years old. Chest pain and shortness of breath. History of code. One month ago. RADIATION DOSAGE (If Supplied By Facility): CTDIvol = ( 9.93 ) mGy, DLP = ( 419.26 ) mGycm TECHNIQUE: The examination was performed with the intravenous administration of IV 100mL Isovue-370. Post-processing of the angiographic images was performed, with multiplanar reformation and 3D reconstruction. Individualized dose optimization techniques were used for this CT. COMPARISON: CT of the abdomen and pelvis, 11/04/2018 FINDINGS: Normal enhancement of the main pulmonary artery and right and left pulmonary arteries. Normal enhancement of the bilateral peripheral pulmonary arteries. There is no demonstrated pulmonary embolism. Normal thoracic aorta and visualized great vessels. There is no demonstrated aortic dissection. Normal heart and pericardium. Normal mediastinum. Normal hilar regions. Normal visualized trachea and bronchi. The lungs are well expanded. Normal pulmonary parenchyma. Normal pleura. Normal chest wall structures. Normal osseous structures. Persistent left hydronephrosis. The remainder of the upper abdomen appears grossly normal. CT/CTA Chest W/WO Contrast IMPRESSION: Normal CTA chest examination, without a demonstrated pulmonary embolism or arterial dissection. Electronically Signed: Macriano Collins DO at 16:50 EST Tel [phone], Service support ,
--- NOTE | 2021-09-17 14:48 | EKG12_ITS ---
Test Reason : SOB Blood Pressure : / mmHG Vent. Rate : 071 BPM Atrial Rate : 071 BPM P-R Int : 114 ms QRS Dur : 098 ms QT Int : 426 ms P-R-T Axes : 097 029 057 degrees QTc Int : 462 ms Normal sinus rhythm Nonspecific ST abnormality Abnormal ECG Confirmed by CAMEILA NAM, LIANE ([id number]), photograph editor GIGI BULLARD ([id number]) on 09/18/2021 2:28:36 P M Referred By: RYAN Confirmed By:FIDELINA DENISE MD
--- NOTE | 2021-09-17 14:51 | EX.ED.DYSGE1 ---
HPI History of Present Illness Chief Complaint: Shortness of Breath Informant: patient and other (Bedside asl interpreter) Narrative Narrative: Patient presents with 4-day history of shortness of breath and burning sensation in her lower chest that wraps around to the back of the ribs. She reports minimal cough. No bloody sputum. She had a Covid 1 month ago. She states she did improve but then 2 weeks ago started getting fevers again. She was seen at an outside hospital late last week and given a 10-day course of Levaquin. Patient has only taken 2 doses of this. [facility] Medical History (Updated 09/17/21 @ 17:[address] Nydia May MD) Abdominal pain COVID-19 Diarrhea Fatigue Nausea Vomiting Home Medications levofloxacin 500 mg PO DAILY 09/17/21 [History Last Taken Unknown] Allergy/AdvReac Type Severity Reaction Status Date / Time No Known Allergies Allergy Verified 09/17/21 14:42 Surgical History History of History of cholecystectomy (~10/2018) Social History Smoking Status: Never smoker alcohol intake: never substance use type: does not use caffeine: Yes frequency: does not exercise seatbelt use: always ROS ROS ED Constitutional Constitutional ED: Reports fever(s); Denies chills Eyes Eyes: Denies change in vision ENT ENT ED: Denies sore throat Cardiovascular Cardiovascular: Reports chest pain Respiratory/Chest Respiratory/Chest: Reports cough, dyspnea and sputum Gastrointestinal Gastrointestinal: Denies abdominal pain, diarrhea, nausea or vomiting Musculoskeletal Musculoskeletal: Reports back pain Integumentary Denies rash Neurologic Neurologic: Denies headache(s) or weakness Allergic/Immunologic Allergic/Immunologic ED: Denies urticaria EXAM Physical Exam Const Vital Signs: 09/17/21 12:53 09/17/21 14:57 09/17/21 15:07 Temperature 97.0 F L 97.6 F L Temperature Source Temporal Temporal Pulse Rate 79 69 Respiratory Rate 18 18 Respiratory Effort Short of Breath Respiratory Depth Normal Respiratory Pattern Normal Blood Pressure 127/62 H 132/73 H Blood Pressure Mean 83 92 Pulse Ox 99 97 Oxygen Delivery Method Room Air Room Air Room Air 09/17/21 16:25 Temperature 97.4 F L Temperature Source Oral Pulse Rate 58 L Respiratory Rate 18 Respiratory Effort Respiratory Depth Respiratory Pattern Blood Pressure 128/69 H Blood Pressure Mean 88 Pulse Ox 95 Oxygen Delivery Method Room Air Positive well nourished and well developed General Appearance ED: well developed HEENT Reports moist mucous membranes Eyes PERRL and EOMs intact bilaterally Neck supple Chest Wall inspection of chest normal and palpation of chest normal Resp normal respiratory effort and clear to auscultation bilaterally Cardio regular rate and regular rhythm GI normal to inspection, nondistended, normoactive bowel sounds and non-tender Palpation: soft Extremity normal to inspection Neuro oriented x3 Sensorium / Orientation: alert Psych mental status grossly normal Skin no rashes or lesions noted MDM MDM MDM Narrative Medical decision making narrative: Lab work and CTA chest obtained. EKG ordered. Lab Data Attestation: I reviewed the patient's lab results. Labs: Laboratory Results - last 24 hr 09/17/21 09/17/21 09/17/21 15:05 15:05 15:05 WBC 8.8 RBC 4.32 Hgb 11.9 L Hct 35.5 L MCV 82.2 MCH 27.5 MCHC 33.5 RDW Std Deviation 46.8 H RDW Coeff of Lev 15.5 H Plt Count 310 MPV 11.0 Immature Gran % (Auto) 0.300 Neut % (Auto) 65.7 Lymph % (Auto) 25.4 [place] % (Auto) 7.7 Eos % (Auto) 0.7 Baso % (Auto) 0.2 Absolute Neuts (auto) 5.8 Absolute Lymphs (auto) 2.22 Nucleated RBC % 0 Sodium 137 Potassium 3.5 Chloride 105 Carbon Dioxide 28.0 Anion Gap 4 L BUN 6 L Creatinine 0.56 Estim Creat Clear Calc 91.12 Est GFR (MDRD) Af Amer 150 Est GFR (MDRD) Non-Af 124 BUN/Creatinine Ratio 10.7 Glucose 139 H Calcium 8.7 Serum , Qual NEGATIVE Radiography Diagnostic Testing: Clinical Impression(s) from Imaging Studies Chest CTA 09/17/21 14:47 IMPRESSION: Normal CTA chest examination, without a demonstrated pulmonary embolism or arterial dissection. Electronically Signed: Marciano Collins DO at 16:50 EST Tel [phone], Service support , EKG Initial EKG: Attestation: I personally reviewed and interpreted this EKG as follows: Interpretation: Sinus Rhythm (Sinus at 71 bpm with no acute ischemia.) Treatment and Re-Evaluation Comments:: On repeat evaluation patient resting comfortably. Test results discussed with asl interpreter at bedside as well as with patient. She will continue supportive care at home. Discharge Plan Triage Chief Complaint: Shortness of Breath ED Provider: Nydia May Dx/Rx/DC Orders Clinical Impression: Dyspnea Instructions: ED Dyspnea Prescriptions: No Action levofloxacin 500 mg tablet 500 mg PO DAILY RF: 0 Primary Care Provider: Care Physician,No Primary Referrals: Michelle Guerra DO [STAFF PHYSICIAN] - 1-2 Weeks Care Physician,No Primary [Primary Care Provider] - Disposition Disposition: Home, Self Care
[2021-09-17 14:57] VITALS: BP 132/73; PULSE 69; RESP 18; TEMP 36.4; O2SAT 97
[2021-09-17 15:07] VITALS: O2SAT 99
[2021-09-17 15:21] LABS: Absolute Lymphocyte Count 2.22 X10^3/uL (0.83-4.51); Absolute Neutrophil Count 5.8 X10^3/uL (2.0-7.7); Basophil# 0.02 X10^3/uL; Basophil% 0.2 % (0-1); Eosinophil# 0.06 X10^3/uL; Eosinophils% 0.7 % (0-5); Hematocrit 35.5 % (37-47); Hemoglobin 11.9 g/dL (12.0-15.0); Lymphocyte # 2.22 X10^3/ul (0.83-4.51); Lymphocyte % 25.4 % (19-41); Mean Corp Hgb Conc 33.5 g/dL (32-36); Mean Corpuscular Hgb 27.5 pg (27.0-32.0); Mean Corpuscular Volume 82.2 fL (81-99); Monocyte# 0.67 X10^3/uL; Monocyte% 7.7 % (0-10); NRBC Flagged by Analyzer 0 % (0-5); Neutrophil # 5.75 X10^3/uL (2.7-7.7); Neutrophil % 65.7 % (47-70); Platelet Count 310 K/mm3 (150-450); RBC Distribution Width CV 15.5 % (11.6-14.6); RBC Distribution Width SD 46.8 fl (35.1-43.9); Red Blood Count 4.32 M/mm3 (4.2-5.4); White Blood Count 8.8 K/mm3 (4.4-11.0)
[2021-09-17 15:31] LABS: Internal QC Validated? YES +Cl - CLEAR BKGD; Pregnancy, Serum, hCG Quali. NEGATIVE Negative
[2021-09-17 15:36] LABS: Anion Gap 4 (5-15); BUN 6 mg/dL (7-18); BUN/Creat Ratio 10.7 RATIO (10-20); Calcium,Total 8.7 mg/dL (8.5-10.1); Chloride 105 mmol/L (98-107); Creatinine, Serum 0.56 mg/dL (0.55-1.02); EST Glomerular Filtration Rate 124 mL/min (>60); Est Glom Filt Rate - Afr Amer 150 mL/min (>60); Estimated Creatinine Clearance 91.12 ml/min; Glucose 139 mg/dL (74-106); Potassium 3.5 mmol/L (3.5-5.1); Sodium Level 137 mmol/L (136-145)
[2021-09-17 16:25] VITALS: BP 128/69; PULSE 58; RESP 18; TEMP 36.3; O2SAT 95
[2021-09-17 18:01] VITALS: BP 126/62; PULSE 63; RESP 18; TEMP 37.2; O2SAT 99
== END 2021-09-17 18:05 | disposition home or self-care (01) ==
PROVIDERS: Emergency Provider Emergency Medicine
DX: R06.00 Dyspnea, unspecified (principal); R07.9 Chest pain, unspecified; R05.9 Cough, unspecified; Z79.890 Hormone replacement therapy; Z86.16 Personal history of COVID-19; Z90.49 Acquired absence of other specified parts of digestive tract
CPT/HCPCS: 71275; 80048; 84703; 85025; 93005; 99284; Q9967; A4216

== ENCOUNTER 2024-03-04 13:17 | Emergency (ER) | payer SELFPAY ==
[2024-03-04 13:18] VITALS: BP 121/73; PULSE 64; RESP 16; TEMP 36; O2SAT 100; BMI 28.7
--- NOTE | 2024-03-04 13:47 | EX.ED.DYSGE1 ---
HPI History of Present Illness Chief Complaint: Wound Check Informant: patient Narrative Narrative: Patient presents secondary to right breast pain. She has an diplomatic interpreter at bedside to translate for her. Patient had a breast biopsy performed approximately 1 month ago. She did have a small hematoma following the biopsy but no long-term complications. It appears that the biopsy was rather benign. She states she was told to follow-up in 6 months. 6 days ago she was outside grilling some food. She noted some burning sensation to her right breast and is not sure if she may have burned herself or if there is an internal infection. She did not hit her breast on anything. She has not noted any skin changes. [facility] Medical History Abdominal pain COVID-19 Diarrhea Fatigue Nausea Vomiting Home Medications levofloxacin 500 mg tablet 500 mg PO DAILY 09/17/21 [History Last Taken Unknown] Allergy/AdvReac Type Severity Reaction Status Date / Time No Known Allergies Allergy Verified 03/04/24 13:18 Surgical History History of History of cholecystectomy (~10/2018) Social History Smoking Status: Never smoker alcohol intake: never substance use type: does not use caffeine: Yes frequency: does not exercise seatbelt use: always ROS ROS ED Constitutional Constitutional ED: Denies chills or fever(s) Eyes Eyes: Denies discharge from eye(s) ENT ENT ED: Denies discharge from eye(s), rhinorrhea or sore throat Cardiovascular Cardiovascular: Reports other Details: Chest wall/right breast pain ; Denies palpitations Respiratory/Chest Respiratory/Chest: Denies dyspnea Gastrointestinal Gastrointestinal: Denies abdominal pain or nausea Musculoskeletal Musculoskeletal: Denies back pain or extremity pain Integumentary Denies Abrasions or rash Neurologic Neurologic: Denies headache(s) or weakness Allergic/Immunologic Allergic/Immunologic ED: Denies lip swelling or urticaria EXAM Physical Exam Const Vital Signs: 03/04/24 13:18 Temperature 96.8 F L Temperature Source Temporal Pulse Rate 64 Respiratory Rate 16 Blood Pressure 121/73 H Blood Pressure Mean 89 Pulse Ox 100 Oxygen Delivery Method Room Air Positive well nourished and well developed General Appearance ED: well developed HEENT Reports moist mucous membranes Eyes EOMs intact bilaterally Chest Wall inspection of chest normal and palpation of chest normal Chest Narrative: Right breast exam unremarkable with no overlying skin changes. No palpable masses. No open wounds or discharge. Resp normal respiratory effort and clear to auscultation bilaterally Cardio regular rate and regular rhythm GI non-tender Palpation: soft Extremity normal to inspection Neuro oriented x3 MDM MDM MDM Narrative Medical decision making narrative: Bedside ultrasound of the right breast was performed. Do not see any fluid collections or significant abnormalities. There is no overlying skin changes to suggest infection and no palpable masses. I advised patient that she may have some scar tissue from her biopsy that was irritated. The burning-like pain she is describing is likely nerve irritation. She can use Tylenol and ibuprofen along with ice packs to the area as needed. She was seen locally by Dr. Beckman and I did recommend follow-up. Discharge Plan Triage Chief Complaint: Wound Check ED Provider: Nydia May Dx/Rx/DC Orders Clinical Impression: Visit for wound check, Breast pain, right Instructions: ED Post Op Wound Check, Pain Prescriptions: No Action levofloxacin 500 mg tablet 500 mg PO DAILY Patient Comments: TAKE 1 TABLET DAILY Primary Care Provider: Care Physician,No Primary Referrals: Jeni Beckman MD [Med Staff - Active Staff] - 1 Week if not improving Care Physician,No Primary [Primary Care Provider] - Disposition Disposition: Home, Self Care
== END 2024-03-04 14:08 | disposition home or self-care (01) ==
LOC: ED 13:58
PROVIDERS: Emergency Provider Emergency Medicine; Visit Provider Emergency Medicine
DX: N64.4 Mastodynia (principal); Z98.890 Other specified postprocedural states
CPT/HCPCS: 99282